=== PATIENT | male | born 1950 | race Caucasian/White ===

== ENCOUNTER → 2018-05-03 | Outpatient (CLI) | payer MEDICARE, OTHER ==
[~2018-05-03] MED LIST: ALL300 PO; AMLO-104 PO; CAN32 PO; FLUT16SP19; LEVO175T38 PO; PANT40TA65 PO; SPIR50TA33 PO; TRAZ100T31 PO
--- NOTE | 2018-05-03 10:01 | RADIOLOGY IMAGING REPORT ---
FACILITY: [facility] PATIENT NAME: Ben Sierra : 1950 MR: [id number] V: [id number] EXAM DATE: ORDERING PHYSICIAN: TAMMIE FITCH TECHNOLOGIST: Location: [facility] [place] Patient: Ben Sierra : 1950 Visit/Account:[id number] Date of Sevice: 05/03/2018 SINUSES MIN 3 VIEWS Provided history: chronic sinusitis Additional pertinent history: Headaches and sinus infections since January 2018 COMPARISON STUDIES: none FINDINGS: Air-fluid levels: none Mucosal thickening / masses: Mild paranasal sinus mucosal thickening. Osteitis: none evident Nasal septum / cavity: Midline Mastoids: Clear IMPRESSION: Mild paranasal sinus mucosal thickening. No air-fluid level seen within the maxillary sinuses. Report Dictated By: Matt Henry MD at 05/03/2018 9:54 AM Report E-Signed By: Matt Henry MD at 05/03/2018 9:56 AM [id number]
== END ==
LOC: RAD 09:09
PROVIDERS: ATTEND Otolaryngology
DX: J32.4 Chronic pansinusitis (principal)
CPT/HCPCS: 70220